=== PATIENT | male | born 1950 | race Caucasian/White ===

== ENCOUNTER 2017-09-11 21:54 | Observation (INO) | payer OTHER, MEDICARE ==
[2017-09-11] MEDS ORDERED: ASPIRIN 81 MG TABLET, CHEWABLE PO ONE (22:37)
--- NOTE | 2017-09-11 22:38 | ER Document Report ---
ED Cardiac - General Chief Complaint: Chest Pain Stated Complaint: CHEST PAIN Time Seen by Provider: 09/11/17 22:29 Notes: Patient is a 67-year-old male that comes emergency department for chief complaint of chest pain. He states that symptoms started at 730 while he was at work, he states that there was a discomfort across the middle of his chest. He states he also felt some palpitations and then he started feeling lightheaded as well. He denies nausea or vomiting, shortness of breath. He states that chest pain and palpitations actually stopped a few minutes before he came in, he denies any current symptoms. He did drink a beer this morning, he denies any alcohol since, he denies smoking, recreational drugs, he takes a baby aspirin daily, he has a history of hypertension, he denies personal history of IA, has never had a stress test. His father had a heart attack. He denies any other medical history. TRAVEL OUTSIDE OF THE [place] IN LAST 30 DAYS: No - Related Data Allergies/Adverse Reactions: No Known Allergies Allergy (Verified 09/11/17 21:56) Past Medical History - General Information source: Patient - Social History Smoking Status: Never Smoker Frequency of alcohol use: None Drug Abuse: None Lives with: Family Family History: Reviewed & Not Pertinent - Past Medical History Cardiac Medical History: Reports: Hx Hypertension - Immunizations Immunizations up to date: Yes Hx Diphtheria, Pertussis, Tetanus Vaccination: Yes Review of Systems - Review of Systems Constitutional: No symptoms reported EENT: No symptoms reported Cardiovascular: See HPI Respiratory: No symptoms reported Gastrointestinal: No symptoms reported Genitourinary: No symptoms reported Male Genitourinary: No symptoms reported Musculoskeletal: No symptoms reported Skin: No symptoms reported Hematologic/Lymphatic: No symptoms reported Neurological/Psychological: No symptoms reported Physical Exam - Vital signs Vitals: Temp Pulse Resp BP Pulse Ox 98.6 F 95 16 144/86 H 98 09/11/17 22:19 09/11/17 22:19 09/11/17 22:19 09/11/17 22:19 09/11/17 22:19 Interpretation: Normal - General General appearance: Appears well In distress: None - HEENT Head: Normocephalic, Atraumatic Eyes: Normal Pupils: PERRL - Respiratory Respiratory status: No respiratory distress Chest status: Nontender Breath sounds: Normal Chest palpation: Normal - Cardiovascular Rhythm: Regular. No: Tachycardia Heart sounds: Normal auscultation, S1 appreciated, S2 appreciated Murmur: No Normal capillary refill: Yes - Abdominal Inspection: Normal Distension: No distension Bowel sounds: Normal Tenderness: Nontender Organomegaly: No organomegaly - Back Back: Normal, Nontender - Extremities General upper extremity: Normal inspection, Nontender, Normal color, Normal ROM , Normal temperature General lower extremity: Normal inspection, Nontender, Normal color, Normal ROM , Normal temperature, Normal weight bearing. No: Leisa's sign - Neurological Neuro grossly intact: Yes Cognition: Normal Orientation: AAOx4 Pike Coma Scale Eye Opening: Spontaneous Pike Coma Scale Verbal: Oriented Pike Coma Scale Motor: Obeys Commands Elisabeth Coma Scale Total: 15 Speech: Normal Motor strength normal: LUE, RUE, LLE, RLE Sensory: Normal - Psychological Associated symptoms: Normal affect, Normal mood - Skin Skin Temperature: Warm Skin Moisture: Dry Skin Color: Normal Course - Re-evaluation Re-evalutation: Patient is chest pain-free on my evaluation. EKG shows sinus rhythm at a rate of 77 with PACs, normal axis, no T-wave inversions or ST segment changes in consecutive leads. Flattened T waves in lead III. No comparison EKG. Patient story slightly concerning that he was having discomfort in his chest that made him feel lightheaded while he was at work that has resolved at rest. He is also 67 years old, has a history of hypertension, and he has a family history of IA. His heart score is 4. CBC, chemistry unremarkable. Patient does not have any alcohol left in his system. Troponin initially is negative. Chest x-ray is unremarkable. Discussed results with patient, because of his heart score and concerned that he might be having angina with previous workup discussed potential admission to the hospital. Patient is very agreeable with this, he wants to stay. Will discuss with hospitalist for telemetry observation workup. Discussed with Dr. Moseley, internal medicine, patient will be admitted to telemetry observation. - Vital Signs Vital signs: Temp Pulse Resp BP Pulse Ox 98.6 F 95 13 131/92 H 95 09/11/17 22:19 09/11/17 22:19 09/12/17 03:01 09/12/17 03:01 09/12/17 03:01 - Laboratory Result Diagrams: 09/11/17 22:57 09/11/17 22:57 Laboratory results interpreted by me: 09/11/17 09/11/17 22:57 22:57 RBC 4.29 L Sodium 135.9 L Discharge - Discharge Clinical Impression: Chest pain Qualifiers: Chest pain type: unspecified Qualified Code(s): R07.9 - Chest pain, unspecified Condition: Stable Disposition: ADMITTED OBSERVATION Admitting Provider: Hospitalist Unit Admitted: Telemetry
[2017-09-11 23:09] LABS: ABSOLUTE EOSINOPHILS # (AUTO) 0.1 10^3/uL (0.0-0.6); ABSOLUTE LYMPHOCYTES (AUTO) 1.1 10^3/uL (0.5-4.7); ABSOLUTE MONOCYTES (AUTO) 0.6 10^3/uL (0.1-1.4); ABSOLUTE NEUT (AUTO) 3.7 10^3/uL (1.7-8.2); BASOPHILS % (AUTO) 0.5 % (0-2); EOSINOPHILS % (AUTO) 1.3 % (0-6); HEMATOCRIT 40.3 % (37.9-51.0); HEMOGLOBIN 13.9 g/dL (13.5-17.0); LYMPHOCYTES % (AUTO) 20.1 % (13-45); MEAN CORPUSCULAR HEMOGLOBIN 32.4 pg (27.0-33.4); MEAN CORPUSCULAR HGB CONC 34.5 g/dL (32.0-36.0); MEAN CORPUSCULAR VOLUME 94 fl (80-97); MONOCYTES % (AUTO) 11.6 % (3-13); PLATELET COUNT 268 10^3/uL (150-450); RED BLOOD COUNT 4.29 10^6/uL (4.35-5.55); RED CELL DISTRIBUTION WIDTH 12.4 % (11.5-14.0); SEGMENTED NEUTROPHILS % (AUTO) 66.5 % (42-78); TOTAL CELLS COUNTED % (AUTO) 100 %; WHITE BLOOD COUNT 5.6 10^3/uL (4.0-10.5)
[2017-09-11 23:24] LABS: ALANINE AMINOTRANSFERASE 66 U/L (21-72); ALBUMIN 4.2 g/dL (3.5-5.0); ALKALINE PHOSPHATASE 71 U/L (38-126); ANION GAP 9 (5-19); ASPARTATE AMINO TRANSFERASE 44 U/L (17-59); BILIRUBIN,DIRECT 0.1 mg/dL (0.0-0.4); BILIRUBIN,TOTAL 0.3 mg/dL (0.2-1.3); BLOOD UREA NITROGEN 11 mg/dL (7-20); CALCIUM 9.7 mg/dL (8.4-10.2); CARBON DIOXIDE 29 mmol/L (22-30); CHLORIDE 98 mmol/L (98-107); CREATINE KINASE 134 U/L (55-170); GLUCOSE 103 mg/dL (75-110); LIPASE 112.6 U/L (23-300); POTASSIUM 3.8 mmol/L (3.6-5.0); SODIUM 135.9 mmol/L (137-145); TOTAL PROTEIN 6.4 g/dL (6.3-8.2)
[2017-09-11 23:28] LABS: ALCOHOL < 10 mg/dL (NONE DETECTED)
[2017-09-11 23:35] LABS: CREATINE KINASE MB 1.68 ng/mL (<4.55)
[2017-09-11 23:38] LABS: TROPONIN I < 0.012 ng/mL
--- NOTE | 2017-09-12 01:25 | RADIOLOGY REPORT (SQ) ---
EXAM DESCRIPTION: CHEST SINGLE VIEW CLINICAL HISTORY: 67 years Male, chest pain COMPARISON: None. NUMBER OF VIEWS/TECHNIQUE: 1/AP LIMITATIONS: None. FINDINGS: Normal lung volume, clear parenchyma, normal cardiac silhouette, and intact bony thorax. IMPRESSION: No acute cardiopulmonary findings.
[2017-09-12] MEDS ORDERED: NITROGLYCERIN 0.4 MG/TAB 25 TAB/BOTTLE SL PRN (01:42)
--- NOTE | 2017-09-12 05:55 | PDOC H&P ---
History of Present Illness Admission Date/PCP: 09/12/17 02:02 CARL CHING DO Patient complains of: Chest pain History of Present Illness: BETHANY MARTEL is a 67 year old male with past medical history of hypertension and anxiety. Patient states he has had recent trouble with his blood pressure that has been intolerant of his hydrochlorothiazide as it makes him queasy. His chest pain begins after checking his blood pressure finding it to be in the 140/70 range but increases each time he checks. This is associated with what he calls panic, shortness of breath, feeling he is going to pass out followed by a twinge in the left side of the chest. 3 out of 5 intensity, nonradiating without nausea vomiting. He is unable to identify alleviating factors with exception to aspirin and alcohol which calmed him. These episodes last intermittently throughout the day his blood pressure does not rise over 150 systolic his pulse does not rise over 90. He has tried trazodone in the past without improvement causing more distress. Patient has temporary relief by drinking 6 beers per day. Incredibly his workup in the emergency room is unremarkable but is referred to the hospitalist for evaluation. He is currently pain-free without shortness of breath nausea vomiting. Past Medical History Cardiac Medical History: Reports: Hypertension Pulmonary Medical History: Reports: None EENT Medical History: Reports: None Neurological Medical History: Reports: None Endocrine Medical History: Reports: None Renal/ Medical History: Reports: None Malignancy Medical History: Reports: None GI Medical History: Reports: None Musculoskeltal Medical History: Reports: None Skin Medical History: Reports: None Psychiatric Medical History: Reports: Alcohol Dependency, General Anxiety Disorder Denies: Depression Traumatic Medical History: Reports: None Hematology: Reports: None Infectious Medical History: Reports: None Past Surgical History Past Surgical History: Reports: None Social History Information Source: Patient Lives with: Family Smoking Status: Former Smoker Frequency of Alcohol Use: Heavy - He denies history of DTs, seizure or blackout Hx Recreational Drug Use: No Drugs: None Hx Prescription Drug Abuse: No - Advance Directive Resuscitation Status: Full Code Family History Family History: CAD, Hypertension Parental Family History Reviewed: Yes Children Family History Reviewed: Yes Sibling(s) Family History Reviewed.: Yes Medication/Allergy Allergies/Adverse Reactions: No Known Allergies Allergy (Verified 09/11/17 21:56) Review of Systems Constitutional: ABSENT: chills, fever(s), headache(s), weight gain, weight loss Eyes: ABSENT: visual disturbances Ears: ABSENT: hearing changes Cardiovascular: ABSENT: chest pain, dyspnea on exertion, edema, orthropnea, palpitations Respiratory: ABSENT: cough, hemoptysis Gastrointestinal: ABSENT: abdominal pain, constipation, diarrhea, hematemesis, hematochezia, nausea, vomiting Genitourinary: ABSENT: dysuria, hematuria Musculoskeletal: ABSENT: joint swelling Integumentary: ABSENT: rash, wounds Neurological: ABSENT: abnormal gait, abnormal speech, confusion, dizziness, focal weakness, syncope Psychiatric: PRESENT: as per HPI, anxiety. ABSENT: depression, homidical ideation, suicidal ideation Endocrine: ABSENT: cold intolerance, heat intolerance, polydipsia, polyuria Hematologic/Lymphatic: ABSENT: easy bleeding, easy bruising Physical Exam Vital Signs: Temp Pulse Resp BP Pulse Ox 98.6 F 64 13 131/92 H 95 09/11/17 22:19 09/12/17 04:20 09/12/17 03:01 09/12/17 03:01 09/12/17 03:01 Intake & Output 09/10/17 09/11/17 09/12/17 11:59 11:59 11:59 Weight 68.8 kg General appearance: PRESENT: mild distress - Vocal tremor, stutter, hyperkinetic and anxious appearing, well-developed, well-nourished Head exam: PRESENT: atraumatic, normocephalic Eye exam: PRESENT: conjunctiva pink, EOMI, PERRLA. ABSENT: scleral icterus Ear exam: PRESENT: normal external ear exam Mouth exam: PRESENT: moist, tongue midline Neck exam: ABSENT: carotid bruit, JVD, lymphadenopathy, thyromegaly Respiratory exam: PRESENT: clear to auscultation pankaj. ABSENT: rales, rhonchi, wheezes Cardiovascular exam: PRESENT: RRR. ABSENT: diastolic murmur, rubs, systolic murmur Pulses: PRESENT: normal dorsalis pedis pul Vascular exam: PRESENT: normal capillary refill GI/Abdominal exam: PRESENT: normal bowel sounds, soft. ABSENT: distended, guarding, mass, organolmegaly, rebound, tenderness Rectal exam: PRESENT: deferred Extremities exam: PRESENT: full ROM. ABSENT: calf tenderness, clubbing, pedal edema Neurological exam: PRESENT: alert, awake, oriented to person, oriented to place , oriented to time, oriented to situation, CN II-XII grossly intact. ABSENT: motor sensory deficit Psychiatric exam: PRESENT: anxious. ABSENT: homicidal ideation, suicidal ideation Focused psych exam: PRESENT: psychomotor agitation Skin exam: PRESENT: dry, intact, warm. ABSENT: cyanosis, rash Results Impressions: Chest X-Ray 09/11/17 22:37 IMPRESSION: No acute cardiopulmonary findings. Assessment & Plan - Diagnosis (1) Chest pain Qualifiers: Chest pain type: unspecified Qualified Code(s): R07.9 - Chest pain, unspecified Is this a current diagnosis for this admission?: Yes Plan: Atypical chest pain though the patient's pain is atypical there are multiple risk factors for coronary artery disease and subsequently will observe and evaluation of acute coronary syndrome versus coronary artery disease with anginal equivalents. Cardiac monitoring blood pressure Q6 hours ,TSH, lipid profile, serial cardiac enzymes and cardiac stress test (2) Anxiety Is this a current diagnosis for this admission?: Yes Plan: Depression Patient denies homicidal or suicidal ideation. I Will evaluate meducation reconciliation, TSH and obtain urine drug screen, consider trazodone trial and or mental health consultation. - Time Time Spent: 30 to 50 Minutes
[2017-09-12 06:34] LABS: CREATINE KINASE MB 1.51 ng/mL (<4.55)
[2017-09-12 06:37] LABS: TROPONIN I < 0.012 ng/mL
--- NOTE | 2017-09-12 07:54 | EKG REPORT ---
SEVERITY:- ABNORMAL ECG - SINUS RHYTHM MULTIPLE PREMATURE COMPLEXES, SUPRAVEN NONSPECIFIC T ABNORMALITIES, LATERAL LEADS : Confirmed by: Elias More MD 12-Sep-2017 07:53:37
[2017-09-12] MEDS: DOCUSATE SODIUM 100 MG CAPSULE PO SCH ×2 (10:45→17:28)
[2017-09-12] MEDS ORDERED: TRAMADOL HCL 50 MG TABLET PO PRN (11:12)
--- NOTE | 2017-09-12 13:11 | DRAGON STRESS TEST REPORT ---
INTRAVENOUS LEXISCAN CARDIOLITE STRESS TEST USING SINGLE PHOTON EMMISION COMPUTERIZED TOMOGRAPHIC. DATE OF PROCEDURE: September 12, 2017, INDICATION : Chest pain CARDIAC RISK FACTORS: Dyslipidemia, family history of CAD RESTING EKG: Sinus rhythm, no baseline ST-T wave changes are noted. STRESS EKG: No significant ST segment changes noted with LexiScan bolus REASON FOR TERMINATION: Protocol. PROCEDURE REPORT: Baseline heart rate 72 beats per minute with blood pressure of 130/78. Patient had no significant complaints. Patient was bolused with Lexiscan 0.4 mg intravenously followed by saline bolus. Heart rate at 2 minutes post bolus 84 with a blood pressure of 127/63. 3 minutes post bolus heart rate 82 with blood pressure of 122/69. No significant EKG changes were noted. Patient had no significant complaints during the procedure or postprocedure. Patient injected with Aminophyllin 75 mg at 3 minutes or later after Lexiscan bolus. CONCLUSIONS: Normal EKG and hemodynamic response to IV LexiScan. NUCLEAR DATA: At rest the patient was given 11.0 millicuries of technetium 99 sestamibi injected intravenously. As per protocol rest gated SPECT images were obtained. On day of stress test, the patient was given intravenous LexiScan at a dose of 0.4 mg in 5 mL intravenously, followed by flush with normal saline. Subsequently the stress dose of 31.1 millicuries of technetium 99 sestamibi was injected intravenously. As per protocol stress gated images were obtained. NUCLEAR INTERPRETATION: Both raw and processed data were used for interpretation. Visual, qualitative, computer-generated quantitative data was used. There was good myocardial uptake of technetium compound. Motion artifact and soft tissue attenuations were noted. Increased visceral uptake was noted. No definitive areas of transient perfusion defect noted, No definitive areas of fixed perfusion defect or scars noted. EKG gated imaging showed LV EF at 63 %, rest and stress gated EF similar visually. T. I D. ratio was 1.09. Lung heart ratio noted to be within normal limits 0.31. No significant extracardiac and abnormal radiotracer activities were noted. RV free wall uptake was noted to be WNL. IMPRESSION: Also refer to comments under nuclear interpretation. Also test results needs to be interpreted in the context of pretest probability. 1. No definitive areas of transient perfusion defect noted. 2. There is no definitive scintigraphic evidence of myocardial infarction/scar. 3. EKG gated imaging shows left ventricular ejection fraction of approx. 63 %. 4. Clinical correlation requested as occasionally single vessel disease or balanced ischemia could be missed. In approximately 10% of the cases Lexiscan may not cause adequate vasodilatory stress. RECOMMENDATIONS: Aggressive risk factor modification and medical management. Further evaluation may be needed if continued symptoms or other high risk indicators are noted on clinical evaluation. Close cardiology follow-up is also recommended. Clinical correlation with echocardiogram derived ejection fraction. Inability to exercise by itself can lead to increased cardiovascular event risks. Consider cardiology consultation and or follow-up if clinically indicated. I am available for cardiology evaluation and consultation if requested by the primary substance abuse counselor, unless patient already has a glue jointer feeder. NIGEL
[2017-09-12] MEDS ORDERED: AMINOPHYLLINE INJ/PF 250 MG/10 ML SDV IV ONE (14:16)
[2017-09-12] MEDS ORDERED: REGADENOSON INJ 0.4 MG/5 ML DISP.SYRIN IV ONE (14:16)
[2017-09-12 15:51] LABS: TRIGLYCERIDES 71 mg/dL (<150)
[2017-09-12 16:02] LABS: DIRECT LDL 52 mg/dL (<100)
--- NOTE | 2017-09-12 17:06 | PDOC PROGRESS REPORT ---
Subjective Progress Note for:: 09/12/17 Subjective:: BETHANY MARTEL is a 67 year old male with past medical history of hypertension and anxiety. The patient had recently had trouble with his hypertension because his hydrochlorothiazide makes him feel nauseated. Overnight for atypical chest pain described as right side, brief, stabbing pain radiating to his right shoulder not associated with dizziness, dyspnea, nausea, diaphoresis. The patient is seen on rounds this afternoon following cardiac stress test. He states that he did have some additional chest pain this morning that was not especially relieved by nitro. He believes that the pain may be related to an old rib injury. However, he is quite anxious that we "do every test we can" to rule out cardiac causes of pain. He also complains of a swollen vein to his lateral left thigh that is intermittent and tender when engorged. He attempts to show me the pain but cannot located at this time. He states that during his chest pain episodes that he finds that this area is also tender. He denies fever, chills, current chest pain, palpitations, dyspnea, orthopnea, abdominal pain, nausea vomiting and diarrhea. Reason For Visit: CHEST PAIN HTN Physical Exam Vital Signs: Temp Pulse Resp BP Pulse Ox 98.5 F 88 18 126/61 H 97 09/12/17 15:17 09/12/17 15:17 09/12/17 15:17 09/12/17 15:17 09/12/17 15:17 Intake & Output 09/11/17 09/12/17 09/13/17 06:59 06:59 06:59 Intake Total 857 Output Total 725 Balance 132 Weight 68.8 kg General appearance: PRESENT: no acute distress, cooperative, well-developed, well-nourished Head exam: PRESENT: atraumatic, normocephalic Eye exam: PRESENT: conjunctiva pink, EOMI, PERRLA. ABSENT: scleral icterus Ear exam: PRESENT: normal external ear exam Mouth exam: PRESENT: moist, tongue midline Neck exam: ABSENT: carotid bruit, JVD, lymphadenopathy, thyromegaly Respiratory exam: PRESENT: clear to auscultation pankaj, symmetrical, unlabored. ABSENT: rales, rhonchi, wheezes Cardiovascular exam: PRESENT: RRR, +S1, +S2. ABSENT: diastolic murmur, rubs, systolic murmur Pulses: PRESENT: normal dorsalis pedis pul Vascular exam: PRESENT: normal capillary refill GI/Abdominal exam: PRESENT: normal bowel sounds, soft. ABSENT: distended, guarding, mass, organolmegaly, rebound, tenderness Rectal exam: PRESENT: deferred Extremities exam: PRESENT: full ROM. ABSENT: calf tenderness, clubbing, pedal edema Neurological exam: PRESENT: alert, awake, oriented to person, oriented to place , oriented to time, oriented to situation, CN II-XII grossly intact. ABSENT: motor sensory deficit Psychiatric exam: PRESENT: anxious, appropriate affect, normal mood. ABSENT: homicidal ideation, suicidal ideation Skin exam: PRESENT: dry, intact, warm. ABSENT: cyanosis, rash Results Laboratory Results: 09/12/17 05:04 Triglycerides 71 Cholesterol 142.10 LDL Cholesterol Direct 52 VLDL Cholesterol 14.0 HDL Cholesterol 65 09/12/17 09/12/17 05:04 05:04 Creatine Kinase 128 CK-MB (CK-2) 1.51 Troponin I < 0.012 Impressions: Chest X-Ray 09/11/17 22:37 IMPRESSION: No acute cardiopulmonary findings. Assessment & Plan - Diagnosis (1) Chest pain Qualifiers: Chest pain type: unspecified Qualified Code(s): R07.9 - Chest pain, unspecified Is this a current diagnosis for this admission?: Yes Plan: The patient was admitted to the medical floor on continuous cardiac telemetry for chest pain rule out. His lipid panel is acceptable. A1c is 5.2%. Serial troponins were negative. EKG shows a normal sinus rhythm with PVCs, nonspecific T waves changes to lateral leads. No current ST segment depression or elevation. Stress test is negative for definitive areas of transient perfusion defects. There is no definitive evidence of myocardial infarction or scar. Echocardiogram is pending. The patient is on a daily aspirin and statin therapy. Nitroglycerin tabs are available every 5 minutes 3 as needed for acute chest pain. (2) Anxiety Is this a current diagnosis for this admission?: Yes Plan: Trazodone nightly. - Time Time Spent with patient: 15-24 minutes Anticipated discharge: Home Within: within 24 hours
[2017-09-12] MEDS ORDERED: ASPIRIN 81 MG TABLET, CHEWABLE PO SCH (18:00)
--- NOTE | 2017-09-12 18:29 | XCELERA REPORT ---
[address] [address] Transthoracic Echocardiogram Report Name: BETHANY MARTEL Age: 67 yrs Gender: Male : 1950 Patient Status: Inpatient Patient Location: [address] [place] [address] Study Date: 09/12/2017 03:47 PM Height: 68 in Weight: 151 lb BSA: 1.8 m2 Procedure: A complete two-dimensional transthoracic echocardiogram was performed (2D, M-mode, spectral and color flow Doppler). The study was technically difficult with many images being suboptimal in quality. Reason For Study: chest pain Ordering Physician: ABDIRIZAK CRAWFORD Performed By: Bette Chambers Interpretation Summary The study was technically difficult with many images being suboptimal in quality. The left ventricular ejection fraction is preserved. Consider additional methods to assess LVEF such as MUGA scan, CTA heart, cardiac MRI, SEBASTIAN, etc. if clinically indicated. There is borderline concentric left ventricular hypertrophy. The left ventricle is grossly normal size. Regional wall motion abnormalities cannot be excluded due to limited visualization. Doppler measurements suggest pseudonormalized left ventricular relaxation, which is associated with grade II/IV or mild to moderate diastolic dysfunction The right ventricle is normal in size, thickness and function Right ventricular function cannot be assessed due to poor image quality. The right atrium is normal in size The left atrial size is normal. There is a trace amount of mitral regurgitation There is no mitral valve stenosis. There is no aortic valve stenosis No aortic regurgitation is present. There is no tricuspid stenosis. No tricuspid regurgitation. The pulmonic valve is not well visualized. The aortic root is not well visualized. The inferior vena cava appeared normal and decreased > 50% with respiration (RAP 5-10 mmHg) There is no pericardial effusion. Doppler Measurements & Calculations MV E max con: MV P1/2t max con: Ao V2 max: LV V1 max P.8 cm/sec 55.8 cm/sec 123.4 cm/sec 3.5 mmHg MV A max con: MV P1/2t: 70.3 msec Ao max PG: LV V1 max: 86.9 cm/sec 6.1 mmHg 93.8 cm/sec MV E/A: 0.65 MVA(P1/2t): 3.1 cm2 MV dec slope: 232.2 cm/sec2 Left Ventricle The left ventricle is grossly normal size. There is borderline concentric left ventricular hypertrophy. The left ventricular ejection fraction is preserved. Consider additional methods to assess LVEF such as MUGA scan, CTA heart, cardiac MRI, SEBASTIAN, etc. if clinically indicated. Doppler measurements suggest pseudonormalized left ventricular relaxation, which is associated with grade II/IV or mild to moderate diastolic dysfunction. Regional wall motion abnormalities cannot be excluded due to limited visualization. Right Ventricle The right ventricle is normal in size, thickness and function. Right ventricular function cannot be assessed due to poor image quality. Atria The right atrium is normal in size. The left atrial size is normal. Mitral Valve The mitral valve is not well visualized. There is no mitral valve stenosis. There is a trace amount of mitral regurgitation. Aortic Valve The aortic valve is not well visualized secondary to technical limitations. There is no aortic valve stenosis. No aortic regurgitation is present. Tricuspid Valve The tricuspid valve is not well visualized secondary to technical limitations. There is no tricuspid stenosis. No tricuspid regurgitation. Pulmonic Valve The pulmonic valve is not well visualized. Great Vessels The aortic root is not well visualized. The inferior vena cava appeared normal and decreased > 50% with respiration (RAP 5-10 mmHg). Effusions There is no pericardial effusion. : ABDIRIZAK CRAWFORD > Elias More
[2017-09-12] MEDS ORDERED: TRAZODONE HCL 50 MG TABLET PO SCH (22:00)
[2017-09-12] MEDS ORDERED: ATORVASTATIN CALCIUM 80 MG TABLET PO SCH (22:00)
[2017-09-13 06:45] LABS: CHOLESTEROL 134.24 mg/dL (0-200); TRIGLYCERIDES 66 mg/dL (<150)
[2017-09-13 06:56] LABS: DIRECT LDL 48 mg/dL (<100)
[2017-09-13] MEDS: DOCUSATE SODIUM 100 MG CAPSULE PO SCH (10:15)
[2017-09-13 12:36] VITALS: BP 146/66
--- NOTE | 2017-09-13 20:41 | PDOC DISCHARGE SUMMARY ---
General - Admit/Disc Date/PCP Admission Date/Primary Care Provider: 09/12/17 02:02 CARL CHING, Discharge Date: 09/13/17 - Discharge Diagnosis (1) Chest pain Is this a current diagnosis for this admission?: Yes (2) Anxiety Is this a current diagnosis for this admission?: Yes - Additional Information Resuscitation Status: Full Code Discharge Diet: Cardiac Discharge Activity: Activity As Tolerated, Slowly Increase Activity Home Medications: Aspirin [Adult Low Dose Aspirin EC] 81 mg PO DAILY 09/12/17 History of Present Illness History of Present Illness: Per H&P by Dr. Moseley: BETHANY MARTEL is a 67 year old male with past medical history of hypertension and anxiety. Patient states he has had recent trouble with his blood pressure that has been intolerant of his hydrochlorothiazide as it makes him queasy. His chest pain begins after checking his blood pressure finding it to be in the 140/70 range but increases each time he checks. This is associated with what he calls panic, shortness of breath, feeling he is going to pass out followed by a twinge in the left side of the chest. 3 out of 5 intensity, nonradiating without nausea vomiting. He is unable to identify alleviating factors with exception to aspirin and alcohol which calmed him. These episodes last intermittently throughout the day his blood pressure does not rise over 150 systolic his pulse does not rise over 90. He has tried trazodone in the past without improvement causing more distress. Patient has temporary relief by drinking 6 beers per day. Incredibly his workup in the emergency room is unremarkable but is referred to the hospitalist for evaluation. He is currently pain-free without shortness of breath nausea vomiting. Hospital Course Hospital Course: The patient was admitted for chest pain work up. His EKG revealed a normal sinus rhythm with non-specific T wave abnormalities without ST segment elevation or depression. Chest xray did not show any acute cardiopulmonary findings. His serial troponins were negative. An echocardiogram demonstrated a preserved ejection fraction and mild diastolic dysfunction. His nuclear stress test showed a normal EKG and hemodynamic response. A lipid panel and A1c were obtained; both of which were well within acceptable limits. At time of discharge, the patient was in stable condition, pain free, maintaining oxygen saturations on room air, and tolerating a regular diet. He is discharged to home with recommendations to continue his aspirin and statin therapy. He is advised to decrease alcohol intake and to follow up with his primary care provider within 1 week. Physical Exam Vital Signs: Temp Pulse Resp BP Pulse Ox 98.3 F 88 17 144/66 H 95 09/13/17 12:10 09/13/17 12:10 09/13/17 12:10 09/13/17 12:10 09/13/17 12:10 Intake & Output 09/12/17 09/13/17 09/14/17 06:59 06:59 06:59 Intake Total 869 Output Total 725 Balance 144 Weight 68.8 kg 71.4 kg General appearance: PRESENT: no acute distress, well-developed, well-nourished Head exam: PRESENT: atraumatic, normocephalic Eye exam: PRESENT: conjunctiva pink, EOMI, PERRLA. ABSENT: scleral icterus Ear exam: PRESENT: normal external ear exam Mouth exam: PRESENT: moist, tongue midline Neck exam: ABSENT: carotid bruit, JVD, lymphadenopathy, thyromegaly Respiratory exam: PRESENT: clear to auscultation pankaj. ABSENT: rales, rhonchi, wheezes Cardiovascular exam: PRESENT: RRR. ABSENT: diastolic murmur, rubs, systolic murmur Pulses: PRESENT: normal dorsalis pedis pul Vascular exam: PRESENT: normal capillary refill GI/Abdominal exam: PRESENT: normal bowel sounds, soft. ABSENT: distended, guarding, mass, organolmegaly, rebound, tenderness Rectal exam: PRESENT: deferred Extremities exam: PRESENT: full ROM. ABSENT: calf tenderness, clubbing, pedal edema Neurological exam: PRESENT: alert, awake, oriented to person, oriented to place , oriented to time, oriented to situation, CN II-XII grossly intact. ABSENT: motor sensory deficit Psychiatric exam: PRESENT: appropriate affect, normal mood. ABSENT: homicidal ideation, suicidal ideation Skin exam: PRESENT: dry, intact, warm. ABSENT: cyanosis, rash Results Laboratory Results: 09/13/17 05:48 Triglycerides 66 Cholesterol 134.24 LDL Cholesterol Direct 48 VLDL Cholesterol 13.0 HDL Cholesterol 69 09/12/17 09/12/17 05:04 05:04 Creatine Kinase 128 CK-MB (CK-2) 1.51 Troponin I < 0.012 Impressions: Chest X-Ray 09/11/17 22:37 IMPRESSION: No acute cardiopulmonary findings. Qualifiers - * PATEINT BEING DISCHARGED WITH ANY OF THE FOLLOWING DIAGNOSIS?: No
== END 2017-09-13 13:10 | disposition home or self-care (01) ==
LOC: ER 21:54 → EH 09-12 02:02 → 4N 09-12 04:19
PROVIDERS: ADMIT Internal Medicine; ATTEND Internal Medicine
DX: R07.9 Chest pain, unspecified (principal); I10 Essential (primary) hypertension; F41.9 Anxiety disorder, unspecified; Z87.891 Personal history of nicotine dependence
CPT/HCPCS: 93005; 99285; 36415 ×3; 82553 ×2; 80307; 82550 ×2; 83690; 83735; 84443; 85025; 80053; 84484 ×2; 83036; 80061 ×2; 93306; 93017; 71045; 78452; 93010; G0378 ×3; A9500; J2785; J3490 ×2; J0280; Q9969

== ENCOUNTER 2018-06-20 22:55 | Emergency (ER) | payer OTHER, MEDICARE ==
--- NOTE | 2018-06-21 04:07 | RADIOLOGY REPORT (SQ) ---
EXAM DESCRIPTION: XR HAND 1-2 VIEWS COMPLETED DATE/TME: 06/21/2018 00:00 CLINICAL HISTORY: 68 years Male, pain, swelling, [id number] COMPARISON: None. Findings: Known soft tissue swelling; no radioopaque foreign body. 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 Mild osteoarthritis. Bones, joints, and soft tissues of the LEFT XR HAND 2 VIEWS appear otherwise intact. IMPRESSION: Soft tissue swelling; else, no acute findings.
[2018-06-21] MEDS ORDERED: LIDOCAINE 2% INJ (20 MG/ML) 20 ML MDV INJ ONE (05:03)
--- NOTE | 2018-06-21 06:28 | ER Document Report ---
ED General - General Chief Complaint: Hand Pain Stated Complaint: THUMB INJURY Time Seen by Provider: 06/21/18 04:58 Notes: Patient is a 68-year-old male who presents to the emergency department with a chief complaint of an infection to his left thumb and left third finger. Over the last 2 days he has noted some swelling and is now stating that his thumb is painful. He states that he had [facility] and they recommended him coming to the emergency department for evaluation of his fingers. He states that he has been having problems with his fingers for the past few months and has not seen a primary care provider for his issues. He denies any fevers, body aches, or any other complaints. He has not seen his primary care provider for this issue. TRAVEL OUTSIDE OF THE [place] IN LAST 30 DAYS: No - Related Data Allergies/Adverse Reactions: No Known Allergies Allergy (Verified 09/11/17 21:56) Past Medical History - Social History Smoking Status: Never Smoker Family History: CAD, Hypertension Patient has suicidal ideation: No Patient has homicidal ideation: No - Past Medical History Cardiac Medical History: Reports: Hx Hypertension Renal/ Medical History: Denies: Hx Peritoneal Dialysis Psychiatric Medical History: Denies: Hx Depression - Immunizations Immunizations up to date: Yes Hx Diphtheria, Pertussis, Tetanus Vaccination: Yes Physical Exam - Vital signs Vitals: Temp Pulse Resp BP Pulse Ox 97.6 F 69 19 138/77 H 98 06/20/18 23:06 06/20/18 23:06 06/20/18 23:06 06/20/18 23:06 06/20/18 23:06 - General General appearance: Appears well - Respiratory Respiratory status: No respiratory distress Breath sounds: Normal - Cardiovascular Rhythm: Regular Heart sounds: Normal auscultation - Neurological Orientation: AAOx4 - Skin Skin Temperature: Warm Skin Moisture: Dry Skin Color: Normal Irregularity with: Swelling - Left thumb paronychia without purulent drainage; left third finger paronychia without purulent drainage Course - Re-evaluation Re-evalutation: 06/21/18 06:29 The patient's x-ray is normal with no evidence of osteomyelitis. I do not suspect he has any life-threatening etiology at this time. His vital signs are stable. A partial nail was removal was done to his left medial aspect of the first and third finger. A digital block was done to both fingers. He tolerated the procedure well. See procedure documentation. He will be started on antibiotics for cellulitis of his thumb. Verbal discharge instructions were given to the patient. - Vital Signs Vital signs: Temp Pulse Resp BP Pulse Ox 97.8 F 76 16 135/84 H 97 06/21/18 07:45 06/21/18 07:45 06/21/18 07:45 06/21/18 07:45 06/21/18 07:45 Procedures - Nail Trephanation/Removal Left Hand Thumb Nail Trepanation/Removal Location: Medial aspect of nail partially removed. Betadine prep applied: No - Cleaned with ChloraPrep Sterile Dressing Applied: Yes Finger Splint: No Notes: Digital block done for pain control Left 3rd digit Nail Trepanation/Removal Location: Needle aspect of nail partially removed Betadine prep applied: No - Cleaned with ChloraPrep Sterile Dressing Applied: Yes Finger Splint: No Notes: Digital block done for pain control Discharge - Discharge Clinical Impression: Finger pain, left Cellulitis Qualifiers: Site of cellulitis: extremity Site of cellulitis of extremity: finger Laterality: left Qualified Code(s): L03.012 - Cellulitis of left finger Condition: Stable Disposition: HOME, SELF-CARE Additional Instructions: You are seen in the emergency department today for finger pain on your thumb and head you have an infection at your nailbed. Partial nail removal was done to help relieve the infection in your nail bed. You will be started on antibiotics. Please take all your antibiotics as prescribed. Please follow-up with your primary care doctor in regards to this visit. If you develop a fever, have worsening symptoms, or have any symptoms that are worrisome to you, please return to the emergency department Prescriptions: Cephalexin Monohydrate [Keflex 500 mg Capsule] 500 mg PO Q6H 7 Days capsule Referrals: CARL CHING DO [Primary Care Provider] - 06/23/18
[2018-06-21 07:52] VITALS: BP 135/84
== END 2018-06-21 07:48 | disposition home or self-care (01) ==
LOC: ER 22:55
DX: L03.012 Cellulitis of left finger (principal); M79.645 Pain in left finger(s); I10 Essential (primary) hypertension
CPT/HCPCS: 99283; 73120; 64450; J3490

== ENCOUNTER 2018-07-18 19:18 | Emergency (ER) | payer OTHER, MEDICARE ==
--- NOTE | 2018-07-18 20:35 | ER Document Report ---
ED Medical Screen (RME) - General Chief Complaint: Thigh Pain Stated Complaint: CHEST PAIN Time Seen by Provider: 07/18/18 20:16 Primary Care Provider: CARL CHING DO [Primary Care Provider] - Follow up as needed Notes: Patient says he had an extreme pain in his left proximal lateral thigh starting about 7:00 this evening. He says the pain is stabbing and goes from that origin up his left side. Is gotten somewhat better now. He says he has had the pain in his thigh occasionally over the years but never had it checked out. He is never had this discomfort going up the left side like this 1 is doing. He has no history of any heart disease. Does have high blood pressure for which he takes aspirin, but no other medicines. Also has a diagnosis of anxiety. He does not think that the symptoms tonight are due to his anxiety. TRAVEL OUTSIDE OF THE [place] IN LAST 30 DAYS: No - Related Data Allergies/Adverse Reactions: No Known Allergies Allergy (Verified 09/11/17 21:56) Past Medical History - Social History Frequency of alcohol use: None Drug Abuse: None - Past Medical History Cardiac Medical History: Reports: Hx Hypertension Renal/ Medical History: Denies: Hx Peritoneal Dialysis Psychiatric Medical History: Denies: Hx Depression - Immunizations Immunizations up to date: Yes Hx Diphtheria, Pertussis, Tetanus Vaccination: Yes History of Influenza Vaccine for 03/2017 - 08/2017 Season: Yes Influenza Administration Date for 03/2017 - 08/2017 Season: 03/17/17 Physical Exam - Vital signs Vitals: Temp Pulse BP Pulse Ox 97.6 F 67 135/80 H 96 07/18/18 19:59 07/18/18 19:59 07/18/18 19:59 07/18/18 19:59 Course - Vital Signs Vital signs: Temp Pulse Resp BP Pulse Ox 97.6 F 67 135/80 H 96 07/18/18 19:59 07/18/18 19:59 07/18/18 19:59 07/18/18 19:59 Doctor's Discharge - Discharge Referrals: CARL CHING DO [Primary Care Provider] - Follow up as needed
[2018-07-18 21:04] LABS: ABSOLUTE EOSINOPHILS # (AUTO) 0.2 10^3/uL (0.0-0.6); ABSOLUTE LYMPHOCYTES (AUTO) 1.4 10^3/uL (0.5-4.7); ABSOLUTE MONOCYTES (AUTO) 0.4 10^3/uL (0.1-1.4); ABSOLUTE NEUT (AUTO) 2.7 10^3/uL (1.7-8.2); BASOPHILS % (AUTO) 0.7 % (0-2); EOSINOPHILS % (AUTO) 3.5 % (0-6); HEMATOCRIT 42.4 % (37.9-51.0); HEMOGLOBIN 15.1 g/dL (13.5-17.0); LYMPHOCYTES % (AUTO) 30.6 % (13-45); MEAN CORPUSCULAR HEMOGLOBIN 33.1 pg (27.0-33.4); MEAN CORPUSCULAR HGB CONC 35.7 g/dL (32.0-36.0); MEAN CORPUSCULAR VOLUME 93 fl (80-97); MONOCYTES % (AUTO) 7.7 % (3-13); PLATELET COUNT 293 10^3/uL (150-450); RED BLOOD COUNT 4.57 10^6/uL (4.35-5.55); RED CELL DISTRIBUTION WIDTH 12.7 % (11.5-14.0); SEGMENTED NEUTROPHILS % (AUTO) 57.5 % (42-78); TOTAL CELLS COUNTED % (AUTO) 100 %; WHITE BLOOD COUNT 4.6 10^3/uL (4.0-10.5)
[2018-07-18 21:21] LABS: ALANINE AMINOTRANSFERASE 38 U/L (21-72); ALBUMIN 4.7 g/dL (3.5-5.0); ALKALINE PHOSPHATASE 76 U/L (38-126); ANION GAP 13 (5-19); ASPARTATE AMINO TRANSFERASE 37 U/L (17-59); BILIRUBIN,DIRECT 0.4 mg/dL (0.0-0.4); BILIRUBIN,TOTAL 0.6 mg/dL (0.2-1.3); BLOOD UREA NITROGEN 9 mg/dL (7-20); CALCIUM 9.4 mg/dL (8.4-10.2); CARBON DIOXIDE 25 mmol/L (22-30); CHLORIDE 101 mmol/L (98-107); CREATINE KINASE 413 U/L (55-170); GLUCOSE 124 mg/dL (75-110); POTASSIUM 3.9 mmol/L (3.6-5.0); SODIUM 138.8 mmol/L (137-145); TOTAL PROTEIN 7.4 g/dL (6.3-8.2)
--- NOTE | 2018-07-18 21:30 | RADIOLOGY REPORT (SQ) ---
XR CHEST 2 VIEWS HISTORY: Left side and chest pain COMPARISON: 09/11/2017 FINDINGS: The heart size is normal. The lungs are clear. No pleural effusions or pneumothorax is seen. No acute bony findings. IMPRESSION: No evidence of acute cardiopulmonary disease.
[2018-07-18 21:33] LABS: TROPONIN I < 0.012 ng/mL
--- NOTE | 2018-07-18 22:48 | ER Document Report ---
ED General - General Chief Complaint: Thigh Pain Stated Complaint: CHEST PAIN Time Seen by Provider: 07/18/18 20:16 Primary Care Provider: CARL CHING DO [Primary Care Provider] - 07/21/18 Notes: Patient is a pleasant 68-year-old male who presents with complaint of a lump in his left thigh that will sometimes swell up and cause pain and spasm that goes up his left side. He says tonight it happened again. He says is been intermittent now for several months. Says tonight the pain went all the way up his left flank and a little bit into his left shoulder and left chest. Says the pain then went away. Currently is pain-free. No fevers. No history of coronary disease. Negative ocular stress test on September 12, 2017. He says that he has seen a doctor about the lump in his leg. He said at that time they said it was nothing surgical or nothing to need to be biopsied at that time. TRAVEL OUTSIDE OF THE [place] IN LAST 30 DAYS: No - Related Data Allergies/Adverse Reactions: No Known Allergies Allergy (Verified 09/11/17 21:56) Past Medical History - Social History Smoking Status: Never Smoker Frequency of alcohol use: None Drug Abuse: None Family History: CAD, Hypertension Patient has suicidal ideation: No Patient has homicidal ideation: No - Past Medical History Cardiac Medical History: Reports: Hx Hypertension Renal/ Medical History: Denies: Hx Peritoneal Dialysis Psychiatric Medical History: Denies: Hx Depression - Immunizations Immunizations up to date: Yes Hx Diphtheria, Pertussis, Tetanus Vaccination: Yes Review of Systems - Review of Systems Notes: My Normal Review Basic REVIEW OF SYSTEMS: CONSTITUTIONAL : Denies fever, chills, or sweats. Denies recent illness. EENT: Denies eye, ear, throat, or mouth pain or symptoms. Denies nasal or sinus congestion. CARDIOVASCULAR: Some chest pain RESPIRATORY: Denies cough, cold, or chest congestion. Denies shortness of breath, difficulty breathing, or wheezing. GASTROINTESTINAL: Denies abdominal pain. Denies nausea, vomiting, or diarrhea. MUSCULOSKELETAL: Thigh pain SKIN: Denies rash or skin lesions. NEUROLOGICAL: Denies altered mental status or loss of consciousness. Denies headache. Denies weakness or paralysis or loss of use of either side. Denies problems with gait or speech. Denies sensory or motor loss. ALL OTHER SYSTEMS REVIEWED AND NEGATIVE. Physical Exam - Vital signs Vitals: Temp Pulse BP Pulse Ox 97.6 F 67 135/80 H 96 07/18/18 19:59 07/18/18 19:59 07/18/18 19:59 07/18/18 19:59 - Notes Notes: General Appearance: Well nourished, alert, cooperative, no acute distress, no obvious discomfort. Well-appearing. Vitals: reviewed, See vital signs table. Head: no swelling or tenderness to the head Eyes: PERRL, EOMI, Conjuctiva clear Mouth: No decreasd moisture Lungs: No wheezing, No rales, No rhonci, No accessory muscle use, good air exchange bilaterally. Heart: Normal rate, Regular rythm, No murmur, no rub Abdomen: Normal BS, soft, No rigidity, No abdominal tenderness, No guarding, no rebound, no abdominal masses, no organomegaly Extremities: strength 5/5 in all extremities, good pulses in all extremities, patient does have a very small knot over the left thigh. He said this is the area that sometimes swells and becomes painful. It feels like a firm knot in the muscle itself. No redness or swelling over the leg. Skin: warm, dry, appropriate color, no rash Neuro: speech clear, oriented x 3, normal affect, responds appropriately to questions. Course - Re-evaluation Re-evalutation: 07/19/18 08:18 Patient's troponin is negative. His CK-MB is slightly elevated but I suspect this because of the elevation in CPK. It appears that all the pain in her left says but he stems from pain initiates in his left thigh. This is been on ongoing recurrent problem now for several months. I informed him he should foll ow back up with his primary care doctor. If this continues to happen he may eventually need an MRI of his thigh to better evaluate the lump. Informed him that if he has recurrent chest pain or shortness of breath and he should return to the ER immediately. Patient agrees the plan will be discharged home. Dictation of this chart was performed using voice recognition software; therefore, there may be some unintended grammatical errors. - Vital Signs Vital signs: Temp Pulse Resp BP Pulse Ox 97.9 F 67 16 139/74 H 99 07/18/18 23:41 07/18/18 19:59 07/18/18 23:41 07/18/18 23:41 07/18/18 23:41 - Laboratory Result Diagrams: 07/18/18 20:35 07/18/18 20:35 Laboratory results interpreted by me: 07/18/18 07/18/18 20:35 20:35 Glucose 124 H Creatine Kinase 413 H CK-MB (CK-2) 11.70 H - EKG Interpretation by Me Additional EKG results interpreted by me: 07/18/18 22:47 EKG is reviewed and interpreted by me. EKG shows sinus rhythm with a rate of [address] segment elevation or depression. No ischemic T wave inversions. ME interval, QRS duration, QTc intervals are within normal range. Old EKG available for comparison at this time. Discharge - Discharge Clinical Impression: Flank pain Thigh pain Qualifiers: Laterality: left Qualified Code(s): M79.652 - Pain in left thigh Condition: Good Disposition: HOME, SELF-CARE Additional Instructions: Please follow up with your doctor on Saturday for reevaluation of your thigh and your recurrent pain. Please have a low threshold to return to the ER if you have any recurrent chest pain, difficulty breathing, fever,s or feel unwell. Referrals: CARL CHING DO [Primary Care Provider] - 07/21/18
[2018-07-18 23:55] VITALS: BP 139/74
--- NOTE | 2018-07-19 08:50 | EKG REPORT ---
SEVERITY:- NORMAL ECG - SINUS RHYTHM : Confirmed by: Elias More MD 19-Jul-2018 08:49:15
== END 2018-07-18 23:55 | disposition home or self-care (01) ==
LOC: ER 19:18
DX: R07.9 Chest pain, unspecified (principal); M79.652 Pain in left thigh; R22.42 Localized swelling, mass and lump, left lower limb; M25.512 Pain in left shoulder; I10 Essential (primary) hypertension
CPT/HCPCS: 36415; 71046; 80053; 82550; 82553; 84484; 85025; 93005; 93010; 99284

== ENCOUNTER 2020-05-31 15:02 | Emergency (ER) | payer OTHER, MEDICARE ==
[2020-05-31] MEDS ORDERED: GLUCAGON,HUMAN RECOMB 1 MG INJ SUBCUT STA (15:45)
--- NOTE | 2020-05-31 15:51 | ER Document Report ---
ED Medical Screen (RME) - General Chief Complaint: Difficulty Swallowing Stated Complaint: FEELS LIKE OBJECT STUCK IN THROAT Time Seen by Provider: 05/31/20 15:37 Primary Care Provider: CARL CHING DO [Primary Care Provider] - Follow up as needed TRAVEL OUTSIDE OF THE [place] IN LAST 30 DAYS: No - HPI Notes: 05/31/20 15:47 70-year-old male with a history of hypertension presents to the emergency department today for evaluation after he started eating beef stew around 1130 last night and feels like something became stuck in his throat. Denies any chest pain, shortness of breath. He did force himself to vomit last night to see if that would help but he has not felt nauseous or vomited without forcing himself to vomit. Has never had this issue before. Patient is unable to drink water he states he keeps spitting it out. Does not follow with a health center assistant. Patient does take a baby aspirin daily. I have greeted and performed a rapid initial assessment of this patient. A comprehensive ED assessment and evaluation of the patient, analysis of test results and completion of the medical decision making process will be conducted by additional ED providers. PHYSICAL EXAMINATION: GENERAL: Chronically ill malnourished and in no acute distress. HEAD: Atraumatic, normocephalic. EYES: Pupils equal round extraocular movements intact, conjunctiva are normal. ent: Pharynx with erythema, no exudate. uvula midline, no trismus NECK: Normal range of motion CV: s1, s2 regular LUNGS: No respiratory distress Musculoskeletal: Normal range of motion NEUROLOGICAL: Normal speech, normal gait. SKIN: Warm, Dry, normal turgor, no rashes or lesions noted. The patient was evaluated during a global COVID-19 pandemic and that diagnosis was suspected/considered upon their initial presentation. Their evaluation, treatment and testing was consistent with current guidelines for patients who present with complaints or symptoms and may be related to COVID-19. - Related Data Allergies/Adverse Reactions: No Known Allergies Allergy (Verified 09/11/17 21:56) Past Medical History - Social History Frequency of alcohol use: Social Drug Abuse: None - Past Medical History Cardiac Medical History: Reports: Hx Hypertension Renal/ Medical History: Denies: Hx Peritoneal Dialysis Psychiatric Medical History: Reports: Hx Anxiety Denies: Hx Depression Past Surgical History: Reports: Hx Herniorrhaphy, Hx Inguinal Hernia - Right inguinal hernia - Immunizations Immunizations up to date: Yes Hx Diphtheria, Pertussis, Tetanus Vaccination: Yes Physical Exam - Vital signs Vitals: Temp Pulse Resp BP Pulse Ox 98.4 F 101 H 17 148/85 H 98 05/31/20 15:34 05/31/20 15:34 05/31/20 15:34 05/31/20 15:34 05/31/20 15:34 Course - Vital Signs Vital signs: Temp Pulse Resp BP Pulse Ox 98.4 F 101 H 17 148/85 H 98 05/31/20 15:34 05/31/20 15:34 05/31/20 15:34 05/31/20 15:34 05/31/20 15:34 Doctor's Discharge - Discharge Referrals: CARL CHING DO [Primary Care Provider] - Follow up as needed
--- NOTE | 2020-05-31 16:18 | RADIOLOGY REPORT (SQ) ---
EXAM DESCRIPTION: CHEST 2 VIEWS IMAGES COMPLETED DATE/TIME: 05/31/2020 4:07 pm REASON FOR STUDY: Sensation of food stuck in throat COMPARISON: 01/12/2019 EXAM PARAMETERS: NUMBER OF VIEWS: two views TECHNIQUE: Digital Frontal and Lateral radiographic views of the chest acquired. RADIATION DOSE: NA LIMITATIONS: none FINDINGS: LUNGS AND PLEURA: No opacities, masses or pneumothorax. No pleural effusion. MEDIASTINUM AND HILAR STRUCTURES: No masses or contour abnormalities. HEART AND VASCULAR STRUCTURES: Heart normal size. No evidence for failure. BONES: No acute findings. HARDWARE: None in the chest. OTHER: No other significant finding. IMPRESSION: NO ACUTE RADIOGRAPHIC FINDING IN THE CHEST. TECHNICAL DOCUMENTATION: JOB ID: [id number] 2010 [employer]- All Rights Reserved Reading location - IP/workstation name: [email or web address]
--- NOTE | 2020-05-31 17:36 | ER Document Report ---
ED General - General Chief Complaint: Difficulty Swallowing Stated Complaint: FEELS LIKE OBJECT STUCK IN THROAT Time Seen by Provider: 05/31/20 15:37 Primary Care Provider: CARL CHING DO [Primary Care Provider] - Follow up as needed TRAVEL OUTSIDE OF THE [place] IN LAST 30 DAYS: No - HPI Notes: 70-year-old male presents with a sensation that something is stuck in his throat. Patient states that he ate beef stew for dinner last night. Around 11:30 PM he had a sensation that a piece of beef was stuck in his throat, motions to the upper part of his chest to describe the area. He states that he tried to gag it out which was unsuccessful, he then stated that he was able to force himself to vomit, however that that did not relieve symptoms either. Since then he tries to drink water, feels it start to bubble up and then he will vomit again. He states this is never happened to him before. - Related Data Allergies/Adverse Reactions: No Known Allergies Allergy (Verified 09/11/17 21:56) Past Medical History - General Information source: Patient - Social History Smoking Status: Never Smoker Frequency of alcohol use: Social Drug Abuse: None Family History: CAD - Father had a myocardial infarction., Hypertension - Past Medical History Cardiac Medical History: Reports: Hx Hypertension Renal/ Medical History: Denies: Hx Peritoneal Dialysis Psychiatric Medical History: Reports: Hx Anxiety Denies: Hx Depression Past Surgical History: Reports: Hx Herniorrhaphy, Hx Inguinal Hernia - Right inguinal hernia - Immunizations Immunizations up to date: Yes Hx Diphtheria, Pertussis, Tetanus Vaccination: Yes Review of Systems - Review of Systems Constitutional: No symptoms reported EENT: See HPI Cardiovascular: denies: Chest pain Respiratory: denies: Cough, Short of breath Gastrointestinal: denies: Abdominal pain Genitourinary: No symptoms reported Male Genitourinary: No symptoms reported Musculoskeletal: No symptoms reported Skin: No symptoms reported Hematologic/Lymphatic: No symptoms reported Neurological/Psychological: No symptoms reported Physical Exam - Vital signs Vitals: Temp Pulse Resp BP Pulse Ox 98.4 F 101 H 17 148/85 H 98 05/31/20 15:34 05/31/20 15:34 05/31/20 15:34 05/31/20 15:34 05/31/20 15:34 - General General appearance: Appears well, Alert In distress: None - HEENT Head: Normocephalic, Atraumatic Extraocular movements intact: Yes Pupils: PERRL Neck: Supple, Other - No stridor. Speaks in full sentences. No pooling of secretions. No gagging. - Respiratory Breath sounds: Normal - Cardiovascular Rhythm: Regular Heart sounds: Normal auscultation - Abdominal Tenderness: Nontender - Extremities General upper extremity: Normal ROM General lower extremity: Normal ROM - Neurological Neuro grossly intact: Yes Cognition: Normal Orientation: AAOx4 - Psychological Associated symptoms: Normal affect - Skin Skin Temperature: Warm Course - Re-evaluation Re-evalutation: 70-year-old male presents with sensation of food impaction, occurred last night around 11:30 PM. On exam he is well-appearing, speaks in full sentences, no gagging or pooling of secretions. No stridor or abnormal lung sounds. Received glucagon subcutaneous prior to my evaluation, which she reports has not changed his symptoms. Will trial morphine and nitro to see if we can help ease passage. 05/31/20 18:39 Nursing reported that after morphine administration patient had what seemed like a brief vagal episode as he was anxious about getting this and became briefly bradycardic. Return to his baseline quickly. 05/31/20 19:42 Patient reports he is feeling better. He drank 2 large sips of water at bedside, no vomiting after. Will continue to monitor. 05/31/20 20:32 Patient has successfully tolerated p.o. No further vomiting. He states he feels comfortable going home. Discussed with him to call his primary care doctor in the morning and discuss referral to GI. Precautions given, stable at time of discharge. - Vital Signs Vital signs: Temp Pulse Resp BP Pulse Ox 98.4 F 101 H 17 148/78 H 100 05/31/20 15:34 05/31/20 15:34 05/31/20 20:01 05/31/20 20:01 05/31/20 20:01 - Laboratory Results Laboratory Results Interpreted: 05/31/20 16:52 POC Glucose 153 H Critical Laboratory Results Reviewed: No Critical Results - Radiology Results Critical Radiology Results Reviewed: No Critical Results Discharge - Discharge Clinical Impression: Food impaction of esophagus Qualifiers: Encounter type: initial encounter Qualified Code(s): T18.128A - Food in esophagus causing other injury, initial encounter Disposition: HOME, SELF-CARE Additional Instructions: Please call your primary care doctor in the morning to discuss your ED visit today and potential referral to gastroenterology, provided contact information for Dr. Atkinson. Return to the emergency department for any concerning worsening symptoms. Referrals: CARL CHING, [Primary Care Provider] - Follow up as needed
[2020-05-31] MEDS ORDERED: MORPHINE SULFATE 10 MG/ML INJ IV ONE (17:45)
[2020-05-31] MEDS ORDERED: NITROGLYCERIN 0.4 MG/TAB 25 TAB/BOTTLE SL ONE (17:45)
[2020-05-31 20:52] VITALS: BP 143/87
== END 2020-05-31 20:52 | disposition home or self-care (01) ==
LOC: ER 15:02
DX: T18.128A Food in esophagus causing other injury, initial encounter (principal); X58.XXXA Exposure to other specified factors, initial encounter; R00.1 Bradycardia, unspecified; I10 Essential (primary) hypertension
CPT/HCPCS: 99284; 96372; 82962; 71046; J1610; J2270